=== PATIENT | female | born 2000 | race Caucasian/White ===

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

== ENCOUNTER 2024-08-14 19:25 | Emergency (ER) | payer OTHER ==
[2024-08-14 20:26] LABS: BASOPHILS ABSOLUTE AUTO 0.1 K/mm3 (0.0-0.2); BASOPHILS PERCENT AUTO 0.7 % (0.0-1.0); EOSINOPHILS ABSOLUTE AUTO 0.2 K/mm3 (0.0-0.4); HEMATOCRIT 37.5 % (37.0-47.0); HEMOGLOBIN 12.4 gm/dl (12.0-16.0); IMMATURE GRAN ABSOLUTE AUTO 0.02 K/mm3 (0.00-0.05); IMMATURE GRAN PERCENT AUTO 0.3 % (0.0-0.4); LYMPHOCYTES PERCENT AUTO 25.7 % (24.0-44.0); MEAN CORPUSCULAR HEMOGLOBIN 29.8 pg (28.0-32.0); MEAN CORPUSCULAR HGB CONC 33.1 g/dl (32.0-36.0); MEAN CORPUSCULAR VOLUME 90.1 fl (83.0-99.0); MEAN PLATELET VOLUME 9.4 fl (9.4-12.3); MONOCYTES ABSOLUTE AUTO 0.6 K/mm3 (0.0-0.8); MONOCYTES PERCENT AUTO 7.7 % (0.0-8.0); NEUTROPHILS ABSOLUTE AUTO 4.9 K/mm3 (1.8-7.7); NEUTROPHILS PERCENT AUTO 63.6 % (41.0-71.0); PLATELET COUNT,PLT 210 K/mm3 (150-400); RED BLOOD CELL COUNT 4.16 M/mm3 (4.10-5.30); WHITE BLOOD CELL COUNT,WBC 7.62 K/mm3 (3.9-11.3)
[2024-08-14 20:27] LABS: APPEARANCE,URINE CLEAR (Clear); BILIRUBIN,URINE NEGATIVE (Negative); COLOR,URINE YELLOW (Yellow); GLUCOSE,URINE NEGATIVE (Negative); KETONES,URINE NEGATIVE (Negative); LEUKOCYTE ESTERASE,URINE NEGATIVE (Negative); NITRITE,URINE NEGATIVE (Negative); OCCULT BLOOD,URINE TRACE-LYSED (Negative); PH,URINE 6.5 (5.0-8.0); PROTEIN,URINE NEGATIVE (Negative); UROBILINOGEN,URINE 0.2 (0.2-1.0)
[2024-08-14 20:35] LABS: BACTERIA,URINE FEW /hpf (FEW); MUCUS,URINE FEW /hpf (FEW); RBC,URINE 0-5 /hpf (0-5); SQUAMOUS EPITHELIAL CELLS,UR 0-5 /hpf (0-5); WBC,URINE 0-5 /hpf (0-5)
[2024-08-14 21:08] LABS: A/G RATIO 1.3 (1-2); ALBUMIN 4.1 g/dl (3.4-5.0); ANION GAP 12.8 (5-15); BILIRUBIN TOTAL 0.3 mg/dL (0.2-1.0); CALCIUM 9.1 mg/dL (8.5-10.1); CREATININE 0.7 mg/dL (0.55-1.02); EST CRCL DRUG DOSING (CG) 108.86 mL/min; POTASSIUM,K 3.8 mEq/L (3.5-5.1); PROTEIN TOTAL,TP 7.2 g/dl (6.4-8.2)
== END 2024-08-14 22:26 | disposition home or self-care (01) ==
LOC: JD.ED 19:25
DX: O99.891 Other specified diseases and conditions complicating pregnancy (principal); R10.9 Unspecified abdominal pain; Z3A.01 Less than 8 weeks gestation of pregnancy
CPT/HCPCS: 36415; 76817; 76817-26; 80053; 81001; 84702; 85025; 99284

== ENCOUNTER 2024-12-09 08:51 | Observation (INO) | payer OTHER ==
[2024-12-09 09:53] LABS: BASOPHILS ABSOLUTE AUTO 0.1 K/mm3 (0.0-0.2); BASOPHILS PERCENT AUTO 0.5 % (0.0-1.0); EOSINOPHILS ABSOLUTE AUTO 0.1 K/mm3 (0.0-0.4); EOSINOPHILS PERCENT AUTO 0.4 % (0.0-6.0); HEMATOCRIT 39.9 % (37.0-47.0); HEMOGLOBIN 13.3 gm/dl (12.0-16.0); IMMATURE GRAN ABSOLUTE AUTO 0.08 K/mm3 (0.00-0.05); IMMATURE GRAN PERCENT AUTO 0.6 % (0.0-0.4); LYMPHOCYTES ABSOLUTE AUTO 1.1 K/mm3 (1.0-4.8); LYMPHOCYTES PERCENT AUTO 7.8 % (24.0-44.0); MEAN CORPUSCULAR HEMOGLOBIN 30.4 pg (28.0-32.0); MEAN CORPUSCULAR HGB CONC 33.3 g/dl (32.0-36.0); MEAN CORPUSCULAR VOLUME 91.1 fl (83.0-99.0); MEAN PLATELET VOLUME 11.7 fl (9.4-12.3); MONOCYTES ABSOLUTE AUTO 0.8 K/mm3 (0.0-0.8); NEUTROPHILS ABSOLUTE AUTO 11.6 K/mm3 (1.8-7.7); NEUTROPHILS PERCENT AUTO 84.7 % (41.0-71.0); PLATELET COUNT,PLT 158 K/mm3 (150-400); RED BLOOD CELL COUNT 4.38 M/mm3 (4.10-5.30); WHITE BLOOD CELL COUNT,WBC 13.72 K/mm3 (3.9-11.3)
[2024-12-09] MEDS: Acetaminophen 325 MG Tab PO ONE (09:59)
[2024-12-09] MEDS: Alum Hydrox/Mag Hydrox/Simeth 30 ML, Lidocaine 2% 15 ML PO ONE (10:00)
[2024-12-09] MEDS: Sodium Chloride 0.9% 10 ML Syringe FLUSH PRN (10:00)
[2024-12-09] MEDS: Famotidine 20 MG Tab PO ONE (10:00)
[2024-12-09 10:15] LABS: A/G RATIO 0.8 (1-2); ALANINE AMINOTRANSFERASE,ALT 118 U/L (14-59); ALBUMIN 3.2 g/dl (3.4-5.0); ALKALINE PHOSPHATASE 115 U/L (46-116); ANION GAP 13.7 (5-15); ASPARTATE AMNIOTRANSFERASE,AST 118 U/L (15-37); BILIRUBIN TOTAL 0.5 mg/dL (0.2-1.0); BLOOD UREA NITROGEN,BUN 7 mg/dL (7-18); CALCIUM 8.7 mg/dL (8.5-10.1); CARBON DIOXIDE,CO2 24 mEq/L (21-32); CHLORIDE,CL 107 mEq/L (98-107); CREATININE 0.7 mg/dL (0.55-1.02); ESTIMATED GFR 125 mL/min (>60); GLUCOSE RANDOM 85 mg/dL (70-99); LIPASE 41 U/L (16-77); POTASSIUM,K 3.7 mEq/L (3.5-5.1); SODIUM,NA 141 mEq/L (136-145)
[2024-12-09 10:18] LABS: TROPONIN I HIGH SENSITIVITY < 4 pg/mL (<=51)
[2024-12-09 10:51] LABS: APPEARANCE,URINE CLEAR (Clear); BILIRUBIN,URINE NEGATIVE (Negative); COLOR,URINE YELLOW (Yellow); GLUCOSE,URINE NEGATIVE (Negative); KETONES,URINE TRACE (Negative); LEUKOCYTE ESTERASE,URINE NEGATIVE (Negative); NITRITE,URINE NEGATIVE (Negative); OCCULT BLOOD,URINE 1+ (Negative); PROTEIN,URINE 3+ (Negative); UROBILINOGEN,URINE 0.2 (0.2-1.0)
[2024-12-09 11:05] LABS: BACTERIA,URINE MODERATE /hpf (FEW); MUCUS,URINE MANY /hpf (FEW); WBC,URINE 0-5 /hpf (0-5)
[2024-12-09] MEDS ORDERED: Misoprostol 25 MCG (1/4 of 100 MCG) Tab VAG ONE (17:20)
[2024-12-09] MEDS ORDERED: Sodium Chloride 0.9% 10 ML Syringe FLUSH PRN (17:20)
[2024-12-09] MEDS: Misoprostol 200 MCG Tab VAG ONE (17:30)
[2024-12-09] MEDS: Labetalol 100 MG/20 ML MDV IVPUSH ONE (17:48)
[2024-12-09] MEDS: Acetaminophen 325 MG Tab PO PRN (18:17)
[2024-12-09 18:21] LABS: HEMOGLOBIN A1C 4.9 %
[2024-12-09 18:43] LABS: CREATININE,URINE RAND 389.1 mg/dL (30.0-125.0); PROTEIN CREATININE RATIO,URINE 566.2 mg/g (0-149); PROTEIN,URINE RANDOM 220.3 mg/dL (0.0-11.8)
[2024-12-09 18:51] LABS: BARBITURATE SCREEN,URINE NEGATIVE (CUTOFF=200); BENZODIAZEPINES SCREEN,URINE NEGATIVE (CUTOFF=150); BUPRENORPHINE SCREEN,URINE NEGATIVE (CUTOFF=10); METHADONE SCREEN, URINE NEGATIVE (CUTOFF=200); METHAMPHETAMINES SCREEN, URINE NEGATIVE (CUTOFF=500); OXYCODONE SCREEN,URINE NEGATIVE (CUT0FF=100); THC SCREEN,URINE 20 NG/ML NEGATIVE (CUTOFF=50)
[2024-12-09 18:54] LABS: AMPHETAMINES SCREEN, URINE NEGATIVE (CUTOFF=500)
[2024-12-09] MEDS: Misoprostol 200 MCG Tab VAG SCH (20:45)
[2024-12-09] MEDS: Misoprostol 200 MCG Tab ONE (23:51)
[2024-12-09] MEDS: Misoprostol 25 MCG (1/4 of 100 MCG) Tab VAG SCH (23:52)
[2024-12-10] MEDS ORDERED: HYDROmorphone 1 MG/ML Syringe IVPUSH PRN (00:21)
[2024-12-10] MEDS: Sodium Chloride 0.9% 10 ML Syringe FLUSH SCH (02:04)
[2024-12-10] MEDS: Ibuprofen 600 MG Tab PO PRN (02:49)
[2024-12-10] MEDS: Misoprostol 200 MCG Tab VAG ONE (09:00)
[2024-12-10] MEDS: Nalbuphine 10 MG/1 ML Vial IVPUSH PRN (09:38)
[2024-12-10] MEDS: Misoprostol 200 MCG Tab PO ONE (11:45)
[2024-12-12 16:42] LABS: B2GLYCPRT1 IGG AB <10 SGU (<=20); B2GLYCPRT1 IGM AB <10 SMU (<=20)
== END 2024-12-10 16:30 | disposition home or self-care (01) ==
LOC: JD.ED 08:51 → JD.OBCHECK 08:51 → JD.OB 16:43 → EDSTATUS 16:48 → JD.OBCHECK 23:28
PROVIDERS: ADMIT Obstetrics & Gynecology; ATTEND Obstetrics & Gynecology
DX: O36.4XX0 Maternal care for intrauterine death, not applicable or unspecified (principal); Z3A.22 22 weeks gestation of pregnancy
CPT/HCPCS: 36415; 59409; 71045; 76705; 76815; 80053; 80306; 81001; 82570; 83036; 83615; 83690; 83880; 84156; 84484; 85025; 85460; 85613; 85730; 86146; 86147; 87070; 87205; 99285; A9270; C1726; J1920; J2300; 96374; G0378